=== PATIENT | female | born 1995 ===

== ENCOUNTER 2016-08-19 08:18 | Observation (INO) | payer MEDICAID ==
[2016-08-19 08:18] VITALS: BMI 23.2
[2016-08-19] MEDS ORDERED: Albuterol-Ipratrop 3 mg / 0.5 (3 ml) UD ONE (09:24)
--- NOTE | 2016-08-19 09:29 | ED PDOC ---
HPI: Asthma Time Seen by Provider: 08/19/16 09:08 Chief Complaint (Nursing): Chest Pain History Per: Patient History/Exam Limitations: no limitations Onset/Duration Of Symptoms: Days Current Symptoms Are (Timing): Still Present Associated Symptoms: Cough Additional Complaint(s): 20-year-old female, PMhx includes Asthma, Anemia, Bronchitis, Pneumothorax, and Sickle-Cell trait, presents to the emergency department with complaints of asthma exacerbation. Patient states she has been experiencing chest tightness nd shortness of breath that is consistent w/ asthma symptoms, for the past few days. She is using her Nebulizer treatment at home with transient relief. Patient notes she woke up this morning with a cough, that is associated with pain in upper back and chest, resulting in her coming to the ED for evaluation. Denies nausea/vomiting, fevers, chills, symptoms, diarrhea, or any other associated symptoms. No other complaints at this time. Last nebulizer Tx was at 06:[address] Tinsley Past Medical History Reviewed: Historical Data, Nursing Documentation, Vital Signs Vital Signs: Last Vital Signs Temp 98.2 F 08/19/16 08:26 Pulse 116 H 08/19/16 08:26 Resp 20 08/19/16 08:26 BP 124/71 08/19/16 08:26 Pulse Ox 93 L 08/19/16 08:26 - Medical History PMH: Anemia, Asthma, Bronchitis, Pneumonia Denies: Chronic Kidney Disease - Family History Family History: States: Unknown Family Hx - Home Medications Home Medications: Ambulatory Orders Medication Instructions Recorded Albuterol Sulfate [Proair Hfa] 2 puff INH Q8 07/24/14 Famotidine [Pepcid] 20 mg PO Q12 #14 tab 06/21/16 Ondansetron ODT [Zofran ODT] 4 mg PO Q6 PRN #16 odt 06/21/16 - Allergies Allergies/Adverse Reactions: Allergies Allergy/AdvReac Type Severity Reaction Status Date / Time shellfish derived Allergy ANGIOEDEMA Verified 08/19/16 08:25 Review of Systems ROS Statement: Except As Marked, All Systems Reviewed And Found Negative Constitutional: Negative for: Fever, Chills Cardiovascular: Positive for: Chest Pain. Negative for: Palpitations, Light Headedness Respiratory: Positive for: Cough, Shortness of Breath Gastrointestinal: Negative for: Vomiting Genitourinary Female: Negative for: Dysuria, Frequency, Vaginal Bleeding Musculoskeletal: Positive for: Back Pain. Negative for: Neck Pain Skin: Negative for: Rash Neurological: Negative for: Weakness, Numbness, Headache, Dizziness Physical Exam - Reviewed Nursing Documentation Reviewed: Yes Vital Signs Reviewed: Yes - Physical Exam Appears: Positive for: Non-toxic, No Acute Distress Head Exam: Positive for: ATRAUMATIC, NORMOCEPHALIC Skin: Positive for: Warm, Dry. Negative for: Rash Eye Exam: Positive for: Normal appearance Neck: Positive for: Painless ROM Cardiovascular/Chest: Positive for: Regular Rate, Rhythm. Negative for: Murmur Respiratory: Positive for: Normal Breath Sounds, Other (SPEAKING IN FULL SENTENCES) Gastrointestinal/Abdominal: Positive for: Soft. Negative for: Tenderness Back: Positive for: Normal Inspection. Negative for: L CVA Tenderness, R CVA Tenderness Extremity: Positive for: Normal ROM Neurologic/Psych: Positive for: Alert, Oriented - Laboratory Results Result Diagrams: 08/19/16 09:48 08/19/16 09:48 - ECG O2 Sat by Pulse Oximetry: 93 - Radiology X-Ray: Read By Radiologist X-Ray Interpretation: No Acute Disease - Progress Re-evaluation Time: 11:14 (peak flow 250 to 350) Condition: Re-examined, Improving,but remains with symptoms Medical Decision Making Medical Decision Making: Impression: 20y/o F comes in w/ cough and chest tightness Diff Dx (includes but not limited to) Asthma Exacerbation vs Viral Syndrome vs PTX vs Influenza Plan: * BMP * CBC * Chest X-Ray * Duoneb, IVF, SoluMedrol * Influenza AB * Reassess and Disposition Scribe Attestation: Documented by Kush Torres acting as a scribe for Julienne Birmingham MD. Provider Attestation: All medical record entries made by the Scribe were at my direction and personally dictated by me. I have reviewed the chart and agree that the record accurately reflects my personal performance of the history, physical exam, medical decision making, and the department course for this patient. I have also personally directed, reviewed, and agree with the discharge instructions and disposition. Though peak flow improved, patient is still coughing and not feeling better. Will admit to hospitalist for Dr. Tinsley Disposition - Clinical Impression Clinical Impression: Asthma exacerbation - Patient ED Disposition Is Patient to be Admitted: Yes Doctor Will See Patient In The: Office Counseled Patient/Family Regarding: Diagnosis - Disposition Disposition: Transfer of Care Disposition Time: 11:16 Condition: FAIR - Pt Status Changed To: Hospital Disposition Of: Observation - POA Present On Arrival: None
[2016-08-19] MEDS ORDERED: Sodium Chloride 0.9% 1,000 ML IV STA (09:32)
[2016-08-19] MEDS ORDERED: Albuterol-Ipratrop 3 mg / 0.5 (3 ml) UD INH SCH (09:45)
[2016-08-19 10:13] LABS: BASO % 0.7 % (0.0-2.0); EOS # 0.6 K/uL (0.0-0.7); LYMPH % 16.6 % (20.0-40.0); MEAN CELL VOLUME 91.8 fl (81.0-99.0); MEAN CORPUSCULAR HEMOGLOBIN 30.1 pg (27.0-31.0); MEAN CORPUSCULAR HGB CONC 32.8 g/dL (33.0-37.0); MEAN PLATELET VOLUME 9.6 fl (7.2-11.7); MONO # 0.3 K/uL (0.0-0.8); MONO % 5.9 % (0.0-10.0); NEUT # 3.9 K/uL (1.8-7.0); NEUT % 66.8 % (50.0-75.0); NRBC % 0.1 % (0.0-0.0); RED CELL DISTRIBUTION WIDTH 12.1 % (11.5-14.5); WHITE BLOOD COUNT 5.9 K/uL (4.8-10.8)
--- NOTE | 2016-08-19 10:19 | RAD ---
HISTORY: cough COMPARISON: 03/30/2016 TECHNIQUE: Chest PA and lateral FINDINGS: LUNGS: No focal alveolar infiltrate is appreciated. Mild nonspecific peribronchial thickening is appreciated which may suggest mild bronchitis or reactive airway disease. PLEURA: No significant pleural effusion identified. No pneumothorax apparent. CARDIOVASCULAR: Normal. OSSEOUS STRUCTURES: Minimal scoliosis is not excluded. No fracture seen. VISUALIZED UPPER ABDOMEN: Normal. OTHER FINDINGS: None. IMPRESSION: No evidence of focal alveolar infiltrate.
[2016-08-19] MEDS ORDERED: Albuterol-Ipratrop 3 mg / 0.5 (3 ml) UD INH STA ×2 (10:30→10:31)
[2016-08-19 10:40] LABS: BLOOD UREA NITROGEN 8 mg/dl (7-17); CALCIUM 9.3 mg/dL (8.4-10.2); CARBON DIOXIDE 23 mmol/L (22-30); CHLORIDE 108 mmol/L (98-107); GFR AFRICAN-AMERICAN > 60; GLUCOSE,RANDOM 95 mg/dL (65-105); POTASSIUM 3.7 MMOL/L (3.6-5.0); SODIUM 139 mmol/l (132-148)
--- NOTE | 2016-08-19 12:08 | CP.PCM.HP ---
History of Present Illness - History of Present Illness History of Present Illness: 20 yo female with history of Asthma since childhood came in because of SOB since 2 days ago. Patient also has cough productive with yellow sputum but denied fever or chills. Also has chest and back pain from excessive coughing. Took ProAir spray but did not improve. Present on Admission - Present on Admission Any Indicators Present on Admission: No History of DVT/PE: No History of Uncontrolled Diabetes: No Urinary Catheter: No Decubitus Ulcer Present: No Review of Systems - Review of Systems All systems: reviewed and no additional remarkable complaints except (aside from those mentioned above, 12 point system review were negative by me) Past Patient History - Infectious Disease Hx of Infectious Diseases: None - Tetanus Immunizations Tetanus Immunization: Unknown - Past Social History Smoking Status: Never Smoked Chewing Tobacco Use: No Cigar Use: No Alcohol: None Drugs: Denies Home Situation {Lives}: With Family - CARDIAC Hx Cardiac Disorders: No - PULMONARY Hx Asthma: Yes Hx Bronchitis: Yes Hx Pneumonia: Yes (x 3) - NEUROLOGICAL Hx Neurological Disorder: No - HEENT Hx HEENT Problems: No - RENAL Hx Chronic Kidney Disease: No - ENDOCRINE/METABOLIC Hx Endocrine Disorders: No - HEMATOLOGICAL/ONCOLOGICAL Hx Anemia: Yes - INTEGUMENTARY Hx Dermatological Problems: No - MUSCULOSKELETAL/RHEUMATOLOGICAL Hx Musculoskeletal Disorders: Yes Hx Back Pain: Yes (Denies) - GASTROINTESTINAL Hx Gastrointestinal Disorders: No - GENITOURINARY/GYNECOLOGICAL Hx Genitourinary Disorders: No - PSYCHIATRIC Hx Psychophysiologic Disorder: No Hx Substance Use: No - SURGICAL HISTORY Hx Surgeries: No Other/Comment: left leg injury- cut from metal with surgical repair - ANESTHESIA Hx Anesthesia: Yes Hx Anesthesia Reactions: No Meds Allergies/Adverse Reactions: Allergies Allergy/AdvReac Type Severity Reaction Status Date / Time shellfish derived Allergy ANGIOEDEMA Verified 08/19/16 08:25 Physical Exam - Constitutional Appears: No Acute Distress - Head Exam Head Exam: ATRAUMATIC - Eye Exam Eye Exam: absent: Scleral icterus - ENT Exam ENT Exam: Mucous Membranes Moist - Neck Exam Neck exam: Negative for: Meningismus - Respiratory Exam Respiratory Exam: Decreased Breath Sounds, Prolonged Expiratory Phase. absent: Wheezes - Cardiovascular Exam Cardiovascular Exam: REGULAR RHYTHM, +S1, +S2 - GI/Abdominal Exam GI & Abdominal Exam: Soft. absent: Tenderness - Rectal Exam Rectal Exam: Deferred - Extremities Exam Extremities exam: Negative for: pedal edema - Neurological Exam Neurological exam: Alert, Oriented x3 - Psychiatric Exam Psychiatric exam: Normal Affect - Skin Skin Exam: Dry, Intact Results - Vital Signs Recent Vital Signs: Last Vital Signs Temp 98.2 F 08/19/16 08:26 Pulse 116 H 08/19/16 08:26 Resp 20 08/19/16 08:26 BP 124/71 08/19/16 08:26 Pulse Ox 93 L 08/19/16 11:16 - Labs Result Diagrams: 08/19/16 09:48 08/19/16 09:48 Assessment & Plan (1) Asthma exacerbation Status: Acute Comment: place on observation in med/surg. Albuterol via nebulizer q 4hrs prn for wheezing/SOB. Duoneb via nebulizer q 6hrs. SoluMedrol 40mg IV q 6hrs. MgSO4 2gm IV once. Zithromax 500mg IV daily
[2016-08-19] MEDS ORDERED: Albuterol 0.083% Inhal Sol (2.5 mg/3 mL) UD INH PRN (12:27)
[2016-08-19] MEDS: Sodium Chloride 0.9% 1,000 ML IV SCH ×2 (13:00→22:30)
[2016-08-19] MEDS: Azithromycin 500 MG in Sodium Chloride 0.9% 250 ML IVPB SCH (14:48)
[2016-08-19] MEDS: Albuterol-Ipratrop 3 mg / 0.5 (3 ml) UD INH SCH ×2 (15:49→20:18)
[2016-08-19] MEDS: methylPREDNISolone 40 MG in Sodium Chloride 0.9% 50 ML IV SCH ×2 (17:26→21:15)
[2016-08-19] MEDS: Fluticasone-Salmeterol 250-50mcg Diskus IH SCH (21:16)
[2016-08-20] MEDS: methylPREDNISolone 40 MG in Sodium Chloride 0.9% 50 ML IV SCH ×2 (03:44→10:26)
[2016-08-20] MEDS: Sodium Chloride 0.9% 1,000 ML IV SCH (03:45)
[2016-08-20] MEDS: Albuterol-Ipratrop 3 mg / 0.5 (3 ml) UD INH SCH (07:55)
[2016-08-20 08:00] LABS: EOS % 0.1 % (0.0-4.0); HEMATOCRIT 35.9 % (34.0-47.0); LYMPH # 0.3 K/uL (1.0-4.3); LYMPH % 3.7 % (20.0-40.0); MEAN CELL VOLUME 92.3 fl (81.0-99.0); MEAN CORPUSCULAR HEMOGLOBIN 30.6 pg (27.0-31.0); MEAN CORPUSCULAR HGB CONC 33.1 g/dL (33.0-37.0); MONO # 0.2 K/uL (0.0-0.8); MONO % 1.9 % (0.0-10.0); NEUT # 8.8 K/uL (1.8-7.0); NEUT % 94.3 % (50.0-75.0); NRBC % 0.1 % (0.0-0.0); PLATELET COUNT 187 K/uL (130-400); RED CELL DISTRIBUTION WIDTH 12.2 % (11.5-14.5); WHITE BLOOD COUNT 9.3 K/uL (4.8-10.8)
[2016-08-20 08:06] VITALS: BP 110/71; PULSE 85; RESP 20; TEMP 98.6; O2SAT 97
[2016-08-20 08:25] LABS: BLOOD UREA NITROGEN 8 mg/dl (7-17); CALCIUM 9.3 mg/dL (8.4-10.2); CARBON DIOXIDE 21 mmol/L (22-30); CHLORIDE 109 mmol/L (98-107); GFR AFRICAN-AMERICAN > 60; GLUCOSE,RANDOM 106 mg/dL (65-105); POTASSIUM 4.4 MMOL/L (3.6-5.0); SODIUM 137 mmol/l (132-148)
[2016-08-20] MEDS: Azithromycin 500 MG in Sodium Chloride 0.9% 250 ML IVPB SCH (08:34)
[2016-08-20] MEDS: Fluticasone-Salmeterol 250-50mcg Diskus IH SCH (08:35)
[2016-08-20] MEDS ORDERED: Enoxaparin 40 mg Syringe SC SCH (09:00)
--- NOTE | 2016-08-20 10:35 | CP.PCM.DIS ---
Provider - Provider Date of Admission: 08/19/16 11:16 Attending physician: Ritesh Austin MD Primary care physician: Vicente Tinsley MD Time Spent in preparation of Discharge (in minutes): 35 Diagnosis - Discharge Diagnosis (1) Asthma exacerbation Status: Acute Comment: patient felt better and breathing easier. discharge in stable condition. continue Zithromax, Medrolpak, Advair and Duoneb as needed Hospital Course - Lab Results Lab Results: Most Recent Lab Values WBC 9.3 K/uL (4.8-10.8) D 08/20/16 05:30 RBC 3.89 Mil/uL (3.80-5.20) 08/20/16 05:30 Hgb 11.9 g/dL (12.0-16.0) L 08/20/16 05:30 Hct 35.9 % (34.0-47.0) 08/20/16 05:30 MCV 92.3 fl (81.0-99.0) 08/20/16 05:30 MCH 30.6 pg (27.0-31.0) 08/20/16 05:30 MCHC 33.1 g/dL (33.0-37.0) 08/20/16 05:30 RDW 12.2 % (11.5-14.5) 08/20/16 05:30 Plt Count 187 K/uL (130-400) 08/20/16 05:30 MPV 10.0 fl (7.2-11.7) 08/20/16 05:30 Neut % (Auto) 94.3 % (50.0-75.0) H 08/20/16 05:30 Lymph % (Auto) 3.7 % (20.0-40.0) L 08/20/16 05:30 [place] % (Auto) 1.9 % (0.0-10.0) 08/20/16 05:30 Eos % (Auto) 0.1 % (0.0-4.0) 08/20/16 05:30 Baso % (Auto) 0.0 % (0.0-2.0) 08/20/16 05:30 Neut # 8.8 K/uL (1.8-7.0) H 08/20/16 05:30 Lymph # 0.3 K/uL (1.0-4.3) L 08/20/16 05:30 [place] # 0.2 K/uL (0.0-0.8) 08/20/16 05:30 Eos # 0.0 K/uL (0.0-0.7) 08/20/16 05:30 Baso # 0.0 K/uL (0.0-0.2) 08/20/16 05:30 Sodium 137 mmol/l (132-148) 08/20/16 05:30 Potassium 4.4 MMOL/L (3.6-5.0) 08/20/16 05:30 Chloride 109 mmol/L (98-107) H 08/20/16 05:30 Carbon Dioxide 21 mmol/L (22-30) L 08/20/16 05:30 Anion Gap 11 (10-20) 08/20/16 05:30 BUN 8 mg/dl (7-17) 08/20/16 05:30 Creatinine 0.5 mg/dL (0.7-1.2) L 08/20/16 05:30 Est GFR ( Amer) > 60 08/20/16 05:30 Est GFR (Non-Af Amer) > 60 08/20/16 05:30 Random Glucose 106 mg/dL (65-105) H 08/20/16 05:30 Calcium 9.3 mg/dL (8.4-10.2) 08/20/16 05:30 Influenza Typ A,B (EIA) Negative for flu a/b (NEGATIVE) 08/19/16 09:48 - Hospital Course Hospital Course: 20 yo female with history of Asthma since childhood came in because of SOB of 2 days duration. She was put on observation and started on SoluMedrol, IV antibiotics and bronchodilators. Patient improved and discharged in stable condition the next day. Discharge Exam - Head Exam Head Exam: ATRAUMATIC - Eye Exam Eye Exam: absent: Scleral icterus - ENT Exam ENT Exam: Mucous Membranes Moist - Respiratory Exam Respiratory Exam: absent: Rhonchi, Wheezes, Respiratory Distress, UNREMARKABLE - Cardiovascular Exam Cardiovascular Exam: REGULAR RHYTHM, +S1, +S2 - GI/Abdominal Exam GI & Abdominal Exam: Soft. absent: Tenderness - Rectal Exam Rectal Exam: Deferred - Neurological Exam Neurological exam: Alert, Oriented x3 - Psychiatric Exam Psychiatric exam: Normal Affect - Skin Skin Exam: Dry, Erythema Discharge Plan - Discharge Medications Prescriptions: Fluticasone/Salmeterol 250/50 [Advair Diskus 250/50] 1 puff IH Q12 #1 puff Albuterol/Ipratropium [Duoneb 3 mg/0.5 mg (3 ml) UD] 3 ml INH RQID #20 neb Methylprednisolone [Medrol] 4 mg PO ASDIR #21 tab.ds.pk Azithromycin [Zithromax] 500 mg PO DAILY #5 tablet - Follow Up Plan Condition: FAIR Disposition: HOME/ ROUTINE Referrals: Vicente Tinsley MD [Primary Care Provider] -
[2016-08-20 13:38] LABS: TOTAL CELLS COUNTED 100
[2016-08-20 13:39] LABS: NEUTROPHIL 94 % (42-75)
== END 2016-08-20 12:03 | disposition home or self-care (01) ==
LOC: H.ER 08:18 → H.ERHOLD 11:16 → H.MEDSURG1 12:27
DX: J45.901 Unspecified asthma with (acute) exacerbation (principal); Z87.01 Personal history of pneumonia (recurrent); D57.3 Sickle-cell trait

== ENCOUNTER 2016-12-06 09:52 | Emergency (ER) | payer MEDICAID ==
[2016-12-06 09:52] VITALS: BMI 23.2
[2016-12-06 09:56] VITALS: RESP 18; O2SAT 97
[2016-12-06] MEDS ORDERED: Albuterol-Ipratrop 3 mg / 0.5 (3 ml) UD INH STA (10:29)
--- NOTE | 2016-12-06 10:29 | ED PDOC ---
HPI: CCC, URI, Sore Throat Chief Complaint (Provider): URI History Per: Patient Time Seen by Provider: 12/06/16 09:58 Chief Complaint (Nursing): Cough, Cold, Congestion Additional Complaint(s): 21 yo female, c/o cough/wheezing ,has hx of asthma. No fever or chills. (Christy Victor) Past Medical History Reviewed: Nursing Documentation, Vital Signs - Medical History PMH: Anemia, Asthma, Bronchitis, Pneumonia (x 3) Denies: Chronic Kidney Disease - Surgical History Surgical History: No Surg Hx - Family History Family History: States: Unknown Family Hx - Living Arrangements Living Arrangements: With Family - Social History Current smoker - smoking cessation education provided: No Alcohol: None Drugs: Denies Vital Signs: Last Vital Signs Temp 97.9 F 12/06/16 12:22 Pulse 78 12/06/16 12:22 Resp 18 12/06/16 12:22 BP 122/68 12/06/16 12:22 Pulse Ox 97 12/06/16 12:22 - Home Medications Home Medications: Ambulatory Orders Medication Instructions Recorded Albuterol/Ipratropium [Duoneb 3 3 ml INH RQID #20 neb 08/20/16 mg/0.5 mg (3 ml) UD] Azithromycin [Zithromax] 500 mg PO DAILY #5 tablet 08/20/16 Fluticasone/Salmeterol 250/50 1 puff IH Q12 #1 puff 08/20/16 [Advair Diskus 250/50] Methylprednisolone [Medrol] 4 mg PO ASDIR #21 tab.ds.pk 08/20/16 Methylprednisolone [Medrol Dose 4 mg PO DAILY #21 mg 12/06/16 Pack (21 tabs)] Promethazine HCl/Codeine 5 ml PO HS #80 ml 12/06/16 [Prometh-Codein 6.25-10 mg/5 ml] - Allergies Allergies/Adverse Reactions: Allergies Allergy/AdvReac Type Severity Reaction Status Date / Time shellfish derived Allergy ANGIOEDEMA Verified 12/06/16 09:57 Review of Systems ROS Statement: Except As Marked, All Systems Reviewed And Found Negative Constitutional: Positive for: Fever Respiratory: Positive for: Cough Physical Exam - Reviewed Nursing Documentation Reviewed: Yes Vital Signs Reviewed: Yes - Physical Exam Appears: Positive for: Well, Non-toxic, No Acute Distress Head Exam: Positive for: ATRAUMATIC, NORMAL INSPECTION, NORMOCEPHALIC Skin: Positive for: Normal Color, Warm, DRY Eye Exam: Positive for: EOMI, Normal appearance, PERRL ENT: Positive for: Normal ENT Inspection Neck: Positive for: Normal, Painless ROM Cardiovascular/Chest: Positive for: Regular Rate, Rhythm Respiratory: Positive for: CNT, Normal Breath Sounds Gastrointestinal/Abdominal: Positive for: Normal Exam, Bowel Sounds, Soft Back: Positive for: Normal Inspection Extremity: Positive for: Normal ROM Neurologic/Psych: Positive for: Alert, Oriented - ECG O2 Sat by Pulse Oximetry: 97 Medical Decision Making Medical Decision Making: CXR: NAD, as read by STEVAN Garcia neb initiated and Solumedrol given as well Stable for discharge at this time, Pt reports doing well on re-eval Lungs CTA bilaterally (Christy Victor) Disposition - Patient ED Disposition Is Patient to be Admitted: No - Disposition Disposition: Routine/Home Disposition Time: 11:00 - Clinical Impression Clinical Impression: Upper respiratory infection, Bronchospasm - Disposition Condition: STABLE Prescriptions: Methylprednisolone [Medrol Dose Pack (21 tabs)] 4 mg PO DAILY #21 mg Promethazine HCl/Codeine [Prometh-Codein 6.25-10 mg/5 ml] 5 ml PO HS #80 ml Instructions: Upper Respiratory Infection (ED), Bronchospasm (ED)
[2016-12-06] MEDS ORDERED: Albuterol-Ipratrop 3 mg / 0.5 (3 ml) UD ONE (10:41)
--- NOTE | 2016-12-06 11:44 | RAD ---
HISTORY: cough and SOB COMPARISON: 08/19/2016. TECHNIQUE: Chest PA and lateral FINDINGS: LUNGS: The lungs are well inflated and clear. PLEURA: No significant pleural effusion identified. No pneumothorax apparent. CARDIOVASCULAR: Normal. OSSEOUS STRUCTURES: No significant abnormalities. VISUALIZED UPPER ABDOMEN: Normal. OTHER FINDINGS: None. IMPRESSION: No active pulmonary disease.
[2016-12-06 12:23] VITALS: BP 122/68; PULSE 78; TEMP 97.9
== END 2016-12-06 12:23 | disposition home or self-care (01) ==
LOC: H.ER 09:52
DX: J06.9 Acute upper respiratory infection, unspecified (principal); J98.01 Acute bronchospasm

== ENCOUNTER 2017-01-31 09:11 | Emergency (ER) | payer MEDICAID ==
[2017-01-31 09:17] VITALS: BMI 19.8
[2017-01-31 09:18] VITALS: BP 106/70; PULSE 109; RESP 20; TEMP 97.8; O2SAT 98
--- NOTE | 2017-01-31 09:43 | ED PDOC ---
HPI: Asthma Time Seen by Provider: 01/31/17 09:19 History Per: Patient (feeling increased need for inhaler/nebulizer. She ran out of her meds and her assigned PCP on her insurance cannot see her for refills. Her last treatment was 3.5 hours prior to visit here. She has never been intubated in the past. She notes symptoms worse at night when she is home.) History/Exam Limitations: no limitations Onset/Duration Of Symptoms: Waxing/Waning Current Symptoms Are (Timing): Gone Now Associated Symptoms: Dyspnea, Cough Severity: Mild Past Medical History Reviewed: Historical Data, Nursing Documentation, Vital Signs Vital Signs: Last Vital Signs Temp 97.8 F 01/31/17 09:17 Pulse 109 H 01/31/17 09:17 Resp 20 01/31/17 09:17 BP 106/70 01/31/17 09:17 Pulse Ox 98 01/31/17 09:17 - Medical History PMH: Anemia, Asthma, Bronchitis, Pneumonia (x 3) Denies: Chronic Kidney Disease - Surgical History Surgical History: No Surg Hx - Family History Family History: States: Unknown Family Hx - Living Arrangements Living Arrangements: Alone - Social History Current smoker - smoking cessation education provided: No Ex-Smoker (has not smoked in the last 12 months): Yes Alcohol: Occasional Drugs: Denies - Home Medications Home Medications: Ambulatory Orders Medication Instructions Recorded Albuterol/Ipratropium [Duoneb 3 3 ml INH RQID #20 neb 08/20/16 mg/0.5 mg (3 ml) UD] Azithromycin [Zithromax] 500 mg PO DAILY #5 tablet 08/20/16 Fluticasone/Salmeterol 250/50 1 puff IH Q12 #1 puff 08/20/16 [Advair Diskus 250/50] Methylprednisolone [Medrol] 4 mg PO ASDIR #21 tab.ds.pk 08/20/16 Methylprednisolone [Medrol Dose 4 mg PO DAILY #21 mg 12/06/16 Pack (21 tabs)] Promethazine HCl/Codeine 5 ml PO HS #80 ml 12/06/16 [Prometh-Codein 6.25-10 mg/5 ml] Albuterol 0.083% [Albuterol 0.083% 2.5 mg IH Q4 PRN #50 unit 01/31/17 Inhal Cathy (2.5 mg/3 ml) UD] Albuterol Sulfate [Proair Hfa] 2 puff IH Q4H PRN #1 unit 01/31/17 - Allergies Allergies/Adverse Reactions: Allergies Allergy/AdvReac Type Severity Reaction Status Date / Time shellfish derived Allergy ANGIOEDEMA Verified 12/06/16 09:57 Review of Systems ROS Statement: Except As Marked, All Systems Reviewed And Found Negative Constitutional: Negative for: Fever Cardiovascular: Negative for: Chest Pain Respiratory: Positive for: Shortness of Breath. Negative for: Cough Gastrointestinal: Negative for: Nausea, Vomiting Physical Exam - Reviewed Nursing Documentation Reviewed: Yes Vital Signs Reviewed: Yes - Physical Exam Appears: Positive for: Well, Non-toxic, No Acute Distress Head Exam: Positive for: ATRAUMATIC, NORMAL INSPECTION, NORMOCEPHALIC Skin: Positive for: Normal Color, Warm, DRY Eye Exam: Positive for: EOMI, Normal appearance, PERRL ENT: Positive for: Normal ENT Inspection Neck: Positive for: Normal, Painless ROM Cardiovascular/Chest: Positive for: Regular Rate, Rhythm Respiratory: Positive for: Normal Breath Sounds, Respiratory Distress. Negative for: Decreased Breath Sounds, Accessory Muscle Use, Wheezing Gastrointestinal/Abdominal: Positive for: Normal Exam, Bowel Sounds, Soft Back: Positive for: Normal Inspection Extremity: Positive for: Normal ROM Neurologic/Psych: Positive for: Alert, Oriented - ECG O2 Sat by Pulse Oximetry: 98 Disposition - Clinical Impression Clinical Impression: Asthma - Disposition Referrals: Marleny Summers [place] [Outside] Disposition Time: 09:25 Condition: STABLE Prescriptions: Albuterol 0.083% [Albuterol 0.083% Inhal Cathy (2.5 mg/3 ml) UD] 2.5 mg IH Q4 PRN #50 unit PRN Reason: Wheezing Albuterol Sulfate [Proair Hfa] 2 puff IH Q4H PRN #1 unit PRN Reason: Wheezing Instructions: Asthma (ED)
== END 2017-01-31 10:00 | disposition home or self-care (01) ==
LOC: H.ER 09:11
DX: J45.909 Unspecified asthma, uncomplicated (principal)

== ENCOUNTER 2017-05-19 19:25 | Emergency (ER) | payer MEDICAID ==
[2017-05-19 19:25] VITALS: BMI 19.8
[2017-05-19 19:32] VITALS: TEMP 98.1
[2017-05-19 19:48] VITALS: RESP 19; O2SAT 98
[2017-05-19] MEDS ORDERED: Albuterol-Ipratrop 3 mg / 0.5 (3 ml) UD INH STA (19:52)
--- NOTE | 2017-05-19 19:57 | ED PDOC ---
HPI: SOB/CHF/COPD Chief Complaint (Provider): cough and SOB History Per: Patient History/Exam Limitations: no limitations Onset/Duration Of Symptoms: Days Current Symptoms Are (Timing): Still Present Initiating Event: Other (dry cough) Quality: Tightness (chest tightness ) Exacerbating Factor(s): Coughing Current Respiratory Medications: Albuterol Severity: Moderate Associated Symptoms: Other (chest tightness and post-tussive emesis ). denies: Fever, Chills <Mahi Stiles - Last Filed: 05/19/17 22:34> <Christy Ruff - Last Filed: 05/20/17 17:38> Time Seen by Provider: 05/19/17 19:38 Chief Complaint (Nursing): Shortness Of Breath Additional Complaint(s): CC: SOB and cough HPI: 21 YO Female with sig PMH of Asthma presents to ED for SOB and cough. Pt states that she starting coughing on Sunday, and it worsened over the past few days. Additionally, pt endorses chest tightness, dyspnea, post-tussive emesis x 2 (food and mucus, no blood noted-last ep this AM). Pt has used her albuterol multiple times in the past two days without much relief and also used nebulizer at night. Denies fever, chills, n/c/d. PMH: Asthma, hx of pneumonia SurgHx: denies FH: HTN and DM in both side of family SH: hx of smoking 5 yrs ago, denies ETOH and illicit drug use Meds: albuterol Allergies: Shellfish (Mahi Stiles) Supervising Attending Note <Mahi Stiles - Last Filed: 05/19/17 22:34> - Supervising Attending Note The Documented history was done by the: Physician Machinery Mechanic, Attending Physician The documented physical exam was done by the: Physician Machinery Mechanic, Attending Physician - Attestation: I have personally seen and examined this patient.: Yes I have fully participated in the care of the patient.: Yes I have reviewed all pertinent clinical information, including history, physical exam and plan: Yes <Christy Ruff - Last Filed: 05/20/17 17:38> - Notes: Notes:: Asthma exacerbation, ran out of meds. Improved with ER treatment. (Christy Ruff) Past Medical History - Medical History PMH: Anemia, Asthma, Bronchitis, Pneumonia (x 3) Denies: Chronic Kidney Disease - Surgical History Surgical History: No Surg Hx - Family History Family History: States: Diabetes, Hypertension - Social History Current smoker - smoking cessation education provided: No Ex-Smoker (has not smoked in the last 12 months): Yes Alcohol: None Drugs: Denies <Mahi Stiles - Last Filed: 05/19/17 22:34> <Christy Ruff - Last Filed: 05/20/17 17:38> Vital Signs: Last Vital Signs Temp 98.1 F 05/19/17 19:29 Pulse 89 05/19/17 22:33 Resp 19 05/19/17 22:33 BP 102/73 05/19/17 22:33 Pulse Ox 98 05/19/17 22:35 - Home Medications Home Medications: Ambulatory Orders Medication Instructions Recorded Albuterol/Ipratropium [Duoneb 3 3 ml INH RQID #20 neb 08/20/16 mg/0.5 mg (3 ml) UD] Azithromycin [Zithromax] 500 mg PO DAILY #5 tablet 08/20/16 Fluticasone/Salmeterol 250/50 1 puff IH Q12 #1 puff 08/20/16 [Advair Diskus 250/50] Methylprednisolone [Medrol] 4 mg PO ASDIR #21 tab.ds.pk 08/20/16 Methylprednisolone [Medrol Dose 4 mg PO DAILY #21 mg 12/06/16 Pack (21 tabs)] Promethazine HCl/Codeine 5 ml PO HS #80 ml 12/06/16 [Prometh-Codein 6.25-10 mg/5 ml] Albuterol 0.083% [Albuterol 0.083% 2.5 mg IH Q4 PRN #50 unit 01/31/17 Inhal Cathy (2.5 mg/3 ml) UD] Albuterol Sulfate [Proair Hfa] 2 puff IH Q4H PRN #1 unit 01/31/17 Albuterol 0.083% [Albuterol 3 ml IH Q4 PRN #50 neb 05/19/17 Sulfate 3 Ml] Albuterol HFA [Ventolin HFA 90 2 puff IH Q4H PRN #1 inh 05/19/17 mcg/actuation (8 g)] Prednisone 50 mg PO DAILY #4 tablet 05/19/17 - Allergies Allergies/Adverse Reactions: Allergies Allergy/AdvReac Type Severity Reaction Status Date / Time shellfish derived Allergy ANGIOEDEMA Verified 12/06/16 09:57 Review of Systems Constitutional: Negative for: Fever, Chills Eyes: Negative for: Pain ENT: Negative for: Nose Discharge Cardiovascular: Positive for: Other (chest tightness ). Negative for: Palpitations Respiratory: Positive for: Cough, Shortness of Breath Gastrointestinal: Positive for: Vomiting (post tussive emesis x 2 ) Genitourinary Female: Negative for: Dysuria Neurological: Negative for: Weakness, Confusion Psych: Negative for: Anxiety <Sa Linseyima - Last Filed: 05/19/17 22:34> Physical Exam - Physical Exam Appears: Positive for: Non-toxic, Uncomfortable Head Exam: Positive for: ATRAUMATIC, NORMAL INSPECTION Skin: Positive for: Normal Color, Warm, Dry. Negative for: Diaphoresis Eye Exam: Positive for: Normal appearance ENT: Negative for: Tonsillar Exudate, Tonsillar Swelling Neck: Positive for: Normal, Painless ROM Cardiovascular/Chest: Positive for: Chest Non Tender, Tachycardia Respiratory: Positive for: Wheezing (expiratory and inspiratory upper and lower lobes b/l ). Negative for: Crackles Gastrointestinal/Abdominal: Positive for: Normal Exam, Bowel Sounds, Soft, Tenderness Extremity: Positive for: Normal ROM. Negative for: Pedal Edema Neurologic/Psych: Positive for: Alert, Oriented <Sa Linseyima - Last Filed: 05/19/17 22:34> - ECG ECG: Positive for: Interpreted By Me ECG Rhythm: Positive for: Sinus Tachycardia O2 Sat by Pulse Oximetry: 98 Pulse Ox Interpretation: Normal <LinseyMahi - Last Filed: 05/19/17 22:34> <Christy Ruff - Last Filed: 05/20/17 17:38> - ECG Interpretation Of ECG: Sinus tachycardia with a rate of 109 (LinseyMahi) - Progress ED Course And Treament: 21 YO Female with PMH of Asthma is seen in ED asthma Exacerbating. Pt given solumedrol and treatment with duonab. Pretreatment Peak flow 100, post treatment peak flow 350 Chest Xray appreciated, interpreted by me, no acute pulmonary disease noted Pt is seen and reevaluated. Wheezing has resolved at this time. Pt endorses that her chest tightness has improved. She feels well enough to go home at this time. PMD is Dr. Tinsley and will follow up with him after d/c. Will d/c pt home with albuterol inh, HFA and PO prednisone 50mg x 4 days (Mahi Stiles) Disposition - Patient ED Disposition Is Patient to be Admitted: No - Disposition Disposition: Routine/Home <Mahi Stiles - Last Filed: 05/19/17 22:34> - Disposition Disposition: Routine/Home Disposition Time: 22:00 <Christy Ruff - Last Filed: 05/20/17 17:38> - Clinical Impression Clinical Impression: Asthma exacerbation - Disposition Referrals: Vicente Tinsley MD [Staff Provider] - Condition: IMPROVED Additional Instructions: Please follow up with PMD Come back to ED if shortness of breath persists or worsens, with fever over 100.4 with Tylenol Prescriptions: Albuterol 0.083% [Albuterol Sulfate 3 Ml] 3 ml IH Q4 PRN #50 neb PRN Reason: asthma Albuterol HFA [Ventolin HFA 90 mcg/actuation (8 g)] 2 puff IH Q4H PRN #1 inh PRN Reason: ASTHMA Prednisone 50 mg PO DAILY #4 tablet
[2017-05-19] MEDS ORDERED: Albuterol-Ipratrop 3 mg / 0.5 (3 ml) UD ONE ×2 (20:32→20:34)
[2017-05-19 22:34] VITALS: BP 102/73; PULSE 89
--- NOTE | 2017-05-20 08:38 | RAD ---
HISTORY: sob COMPARISON: Chest radiographs 12/06/2016. TECHNIQUE: Chest PA and lateral FINDINGS: LUNGS: No active pulmonary disease. PLEURA: No significant pleural effusion identified. No pneumothorax apparent. CARDIOVASCULAR: Normal. OSSEOUS STRUCTURES: No significant abnormalities. VISUALIZED UPPER ABDOMEN: Normal. OTHER FINDINGS: None. IMPRESSION: No interval acute cardiopulmonary disease appreciated.
--- NOTE | 2017-05-20 17:25 | CARD ---
APPROVED REPORT EKG Measurement Heart [id number] <Conclusion> Sinus tachycardia Otherwise normal ECG
== END 2017-05-19 22:37 | disposition home or self-care (01) ==
LOC: H.ER 19:25
DX: J45.901 Unspecified asthma with (acute) exacerbation (principal); Z87.891 Personal history of nicotine dependence
CPT/HCPCS: 71020; 81025; 93005; 94640; 96372; 99283; J2930

== ENCOUNTER 2017-07-31 06:37 | Emergency (ER) | payer SELFPAY ==
[2017-07-31 06:38] VITALS: BMI 19.8
[2017-07-31 06:54] VITALS: RESP 18
[2017-07-31] MEDS ORDERED: Albuterol 0.083% Inhal Sol (2.5 mg/3 mL) UD INH ONE (07:51)
[2017-07-31 07:54] VITALS: O2SAT 98
[2017-07-31] MEDS ORDERED: Albuterol 0.083% Inhal Sol (2.5 mg/3 mL) UD ONE (08:02)
--- NOTE | 2017-07-31 08:09 | ED PDOC ---
HPI: SOB/CHF/COPD Time Seen by Provider: 07/31/17 07:10 Chief Complaint (Nursing): Shortness Of Breath Chief Complaint (Provider): Shortness Of Breath History Per: Patient History/Exam Limitations: no limitations Onset/Duration Of Symptoms: Hrs (x3) Current Symptoms Are (Timing): Still Present Additional Complaint(s): 21 year old female with a past medical history of asthma, who presents to the ED due to shortness of breath x2 hours. Patient reports she ran out of inhaler. States she woke up at 5am when she suffered what felt like an asthma attack with shortness of breath. Says she isn't sure what triggered her attack. Confirms occasional dry cough. Denies fever, vomiting, and chest pain. PMD: Vicente Tinsley Past Medical History Reviewed: Historical Data, Nursing Documentation, Vital Signs Vital Signs: Last Vital Signs Temp 97 F L 07/31/17 10:01 Pulse 88 07/31/17 10:01 Resp 18 07/31/17 10:01 BP 110/78 07/31/17 10:01 Pulse Ox 98 07/31/17 10:06 - Medical History PMH: Anemia, Asthma, Bronchitis, Pneumonia (x 3) Denies: Chronic Kidney Disease - Surgical History Surgical History: No Surg Hx - Family History Family History: States: Unknown Family Hx, Diabetes, Hypertension - Social History Current smoker - smoking cessation education provided: No Alcohol: None Drugs: Denies - Home Medications Home Medications: Ambulatory Orders Medication Instructions Recorded Albuterol/Ipratropium [Duoneb 3 3 ml INH RQID #20 neb 08/20/16 mg/0.5 mg (3 ml) UD] Azithromycin [Zithromax] 500 mg PO DAILY #5 tablet 08/20/16 Fluticasone/Salmeterol 250/50 1 puff IH Q12 #1 puff 08/20/16 [Advair Diskus 250/50] Methylprednisolone [Medrol] 4 mg PO ASDIR #21 tab.ds.pk 08/20/16 Methylprednisolone [Medrol Dose 4 mg PO DAILY #21 mg 12/06/16 Pack (21 tabs)] Promethazine HCl/Codeine 5 ml PO HS #80 ml 12/06/16 [Prometh-Codein 6.25-10 mg/5 ml] Albuterol 0.083% [Albuterol 0.083% 2.5 mg IH Q4 PRN #50 unit 01/31/17 Inhal Cathy (2.5 mg/3 ml) UD] Albuterol Sulfate [Proair Hfa] 2 puff IH Q4H PRN #1 unit 01/31/17 Albuterol 0.083% [Albuterol 3 ml IH Q4 PRN #50 neb 05/19/17 Sulfate 3 Ml] Albuterol HFA [Ventolin HFA 90 2 puff IH Q4H PRN #1 inh 05/19/17 mcg/actuation (8 g)] Prednisone 50 mg PO DAILY #4 tablet 05/19/17 Albuterol HFA [Ventolin HFA 90 1 - 2 puff IH Q4H PRN #1 bottle 07/31/17 mcg/actuation (8 g)] - Allergies Allergies/Adverse Reactions: Allergies Allergy/AdvReac Type Severity Reaction Status Date / Time shellfish derived Allergy ANGIOEDEMA Verified 12/06/16 09:57 Review of Systems ROS Statement: Except As Marked, All Systems Reviewed And Found Negative Constitutional: Negative for: Fever Cardiovascular: Negative for: Chest Pain Respiratory: Positive for: Cough, Shortness of Breath Gastrointestinal: Negative for: Vomiting Physical Exam - Reviewed Nursing Documentation Reviewed: Yes Vital Signs Reviewed: Yes - Physical Exam Appears: Positive for: Non-toxic, No Acute Distress Head Exam: Positive for: ATRAUMATIC, NORMAL INSPECTION, NORMOCEPHALIC Skin: Positive for: Normal Color, Warm, Dry. Negative for: Rash Eye Exam: Positive for: EOMI, Normal appearance, PERRL Neck: Positive for: Normal, Painless ROM, Supple Cardiovascular/Chest: Positive for: Regular Rate, Rhythm. Negative for: Murmur Respiratory: Positive for: Normal Breath Sounds. Negative for: Wheezing, Respiratory Distress Gastrointestinal/Abdominal: Positive for: Normal Exam, Bowel Sounds, Soft. Negative for: Tenderness Back: Positive for: Normal Inspection. Negative for: L CVA Tenderness, R CVA Tenderness, Vertebral Tenderness Extremity: Positive for: Normal ROM. Negative for: Pedal Edema, Deformity Neurologic/Psych: Positive for: Alert, Oriented (x3). Negative for: Motor/ Sensory Deficits - ECG O2 Sat by Pulse Oximetry: 98 (RA) Pulse Ox Interpretation: Normal Medical Decision Making Medical Decision Making: Time: 07:51 Initial Impression: Asthma exacerbation Initial Plan: --Albuterol 2.5 mg INH --Reevaluation Time: 09:54 pt feels improved and vitals stable Upon provider evaluation patient is medically stable, and requires no further treatment in the ED at this time. Patient will be discharged with Rx for Albuterol. Counseling was provided and all questions were answered regarding diagnosis and need for follow up with PMD. There is agreement to discharge plan. Return if symptoms persist or worsen. Scribe Attestation: Documented by Satish Santamaria, acting as a scribe for Keshav Yip MD. Provider Scribe Attestation: All medical record entries made by the Scribe were at my direction and personally dictated by me. I have reviewed the chart and agree that the record accurately reflects my personal performance of the history, physical exam, medical decision making, and the department course for this patient. I have also personally directed, reviewed, and agree with the discharge instructions and disposition. Disposition - Clinical Impression Clinical Impression: Asthma exacerbation - Patient ED Disposition Is Patient to be Admitted: No Counseled Patient/Family Regarding: Diagnosis, Need For Followup, Rx Given - Disposition Referrals: Vicente Tinsley MD [Primary Care Provider] - Disposition: Routine/Home Disposition Time: 09:35 Condition: IMPROVED Additional Instructions: follow up with your primary doctor in 1-2 days return to the ED with any worsening or concerning symptoms Prescriptions: Albuterol HFA [Ventolin HFA 90 mcg/actuation (8 g)] 1 - 2 puff IH Q4H PRN #1 bottle PRN Reason: Wheezing Instructions: Asthma, Adult (DC) Forms: [employer] (Bengali)
[2017-07-31 10:02] VITALS: BP 110/78; PULSE 88; TEMP 97
== END 2017-07-31 10:03 | disposition home or self-care (01) ==
LOC: H.ER 06:37
DX: J45.901 Unspecified asthma with (acute) exacerbation (principal); J44.9 Chronic obstructive pulmonary disease, unspecified

== ENCOUNTER 2017-08-17 10:34 | Observation (INO) | payer SELFPAY ==
[2017-08-17 10:34] VITALS: BMI 19.8
[2017-08-17] MEDS ORDERED: Albuterol-Ipratrop 3 mg / 0.5 (3 ml) UD INH STA ×3 (10:54→10:55)
[2017-08-17] MEDS ORDERED: Albuterol-Ipratrop 3 mg / 0.5 (3 ml) UD ONE (11:01)
--- NOTE | 2017-08-17 12:13 | RAD ---
HISTORY: cough, sOB, hx asthma COMPARISON: 05/19/2017 TECHNIQUE: Chest PA and lateral FINDINGS: LUNGS: No active pulmonary disease. PLEURA: No significant pleural effusion identified. No pneumothorax apparent. CARDIOVASCULAR: Normal. OSSEOUS STRUCTURES: No significant abnormalities. VISUALIZED UPPER ABDOMEN: Normal. OTHER FINDINGS: None. IMPRESSION: No active disease.
[2017-08-17] MEDS ORDERED: DiphenhydrAMINE 50 mg/ml Inj IVP STA (14:05)
[2017-08-17] MEDS ORDERED: Sodium Chloride 0.9% 1,000 ML IV STA (14:06)
[2017-08-17] MEDS ORDERED: DiphenhydrAMINE 50 mg/ml Inj ONE (14:34)
[2017-08-17 14:57] LABS: HEMOGLOBIN 12.4 g/dL (12.0-16.0); MEAN CELL VOLUME 92.2 fl (81.0-99.0); MEAN CORPUSCULAR HGB CONC 33.7 g/dL (33.0-37.0); RBC 3.99 Mil/uL (3.80-5.20); RED CELL DISTRIBUTION WIDTH 11.8 % (11.5-14.5); WHITE BLOOD COUNT 6.7 K/uL (4.8-10.8)
[2017-08-17 15:11] LABS: ALB/GLOB RATIO 1.4 (1.0-2.1); ALT/SGPT 32 U/L (9-52); AST/SGOT 19 U/L (14-36); BLOOD UREA NITROGEN 8 mg/dl (7-17); CALCIUM 9.5 mg/dL (8.4-10.2); GFR AFRICAN-AMERICAN > 60; GFR NON-AFRICAN AMERICAN > 60
--- NOTE | 2017-08-17 16:28 | ED PDOC ---
History of Present Illness History of Present Illness: URI symptoms for 3 days. HPI: Influenza Time Seen by Provider: 08/17/17 10:43 Chief Complaint: Cough, Cold, Congestion Chief Complaint (Provider): URI symptoms x 3 days, no fever History Per: Patient Exam Limitations: no limitations Have you had recent travel within the past 21 days to any of: No Onset/Duration Of Symptoms: Days Symptoms include: denies: fever, headache, bodyaches, sore throat, cough Sick Contacts (Context): None Hx Influenza Vaccination: No Risk factors for flu complications: Yes: chronic lung disease Additional complaint(s):: PT states that she has been feeling SOB and wheezing since last night. No improvement in inhaler and albuterol treatments at home. Past Medical History Reviewed: Historical Data, Nursing Documentation, Vital Signs Vital Signs: Last Vital Signs Temp 98 F 08/17/17 10:53 Pulse 118 H 08/17/17 15:35 Resp 19 08/17/17 15:35 BP 109/76 08/17/17 13:25 Pulse Ox 97 08/17/17 15:35 - Medical History PMH: Anemia, Asthma, Bronchitis, Pneumonia (x 3) Denies: Chronic Kidney Disease - Surgical History Surgical History: No Surg Hx - Family History Family History: States: Unknown Family Hx, Diabetes, Hypertension - Home Medications Home Medications: Ambulatory Orders Medication Instructions Recorded Albuterol HFA [Ventolin HFA 90 1 - 2 puff IH Q4H PRN #1 bottle 07/31/17 mcg/actuation (8 g)] - Allergies Allergies/Adverse Reactions: Allergies Allergy/AdvReac Type Severity Reaction Status Date / Time shellfish derived Allergy ANGIOEDEMA Verified 12/06/16 09:57 Review of Systems ROS Statement: Except As Marked, All Systems Reviewed And Found Negative Constitutional: Negative for: Fever, Chills Respiratory: Positive for: Cough, Shortness of Breath, Wheezing Physical Exam - Reviewed Nursing Documentation Reviewed: Yes Vital Signs Reviewed: Yes - Physical Exam Appears: Positive for: Well, Non-toxic, No Acute Distress Head Exam: Positive for: ATRAUMATIC, NORMAL INSPECTION, NORMOCEPHALIC Skin: Positive for: Normal Color, Warm, DRY Eye Exam: Positive for: Normal appearance ENT: Positive for: Normal ENT Inspection Neck: Positive for: Normal, Painless ROM Cardiovascular/Chest: Positive for: Regular Rate, Rhythm Respiratory: Positive for: Wheezing (Diffuse, bilateral ). Negative for: Accessory Muscle Use, Respiratory Distress Back: Positive for: Normal Inspection Extremity: Positive for: Normal ROM Neurologic/Psych: Positive for: Alert, Oriented Medical Decision Making Medical Decision Making: Pt initally did not want solumedrol do to previous rash. PT states she has had it on multiple occasions and only once had rash. After 3 treatments there is little improvement in wheezing and pt states she does not feel better. Solumedrol than ordered. 1600 - PT continues to wheeze and feel SOB. Pulse Ox highest is 93% on room air. Discussed case with Dr. Sarmiento for admission. - Laboratory Results Result Diagrams: 08/17/17 14:53 08/17/17 14:53 - ECG O2 Sat by Pulse Oximetry: 97 Disposition - Clinical Impression Clinical Impression: Asthma exacerbation - Patient ED Disposition Is Patient to be Admitted: Yes - Disposition Disposition Time: 16:32 Condition: STABLE
--- NOTE | 2017-08-17 16:57 | CP.PCM.HP ---
History of Present Illness - History of Present Illness History of Present Illness: 21 yo female with history of Asthma came in because of SOB and wheezing since last night not responding to her regular asthma medications at home. She was started on Duoneb via nebulizer x 3 and 125mg of IV SoluMedrol to no avail. Denied fever or chills. Present on Admission - Present on Admission Any Indicators Present on Admission: No History of DVT/PE: No History of Uncontrolled Diabetes: No Urinary Catheter: No Decubitus Ulcer Present: No Review of Systems - Review of Systems All systems: reviewed and no additional remarkable complaints except (aside from those mentioned above, 12 point system review were negative by me) Past Patient History - Infectious Disease Hx of Infectious Diseases: None - Tetanus Immunizations Tetanus Immunization: Unknown - Past Social History Smoking Status: Never Smoked Alcohol: None Drugs: Denies Home Situation {Lives}: With Family - CARDIAC Hx Cardiac Disorders: No - PULMONARY Hx Asthma: Yes Hx Bronchitis: Yes Hx Pneumonia: Yes (x 3) - NEUROLOGICAL Hx Neurological Disorder: No - HEENT Hx HEENT Problems: No - RENAL Hx Chronic Kidney Disease: No - ENDOCRINE/METABOLIC Hx Endocrine Disorders: No - HEMATOLOGICAL/ONCOLOGICAL Hx Anemia: Yes - INTEGUMENTARY Hx Dermatological Problems: No - MUSCULOSKELETAL/RHEUMATOLOGICAL Hx Falls: No - GASTROINTESTINAL Hx Gastrointestinal Disorders: No - GENITOURINARY/GYNECOLOGICAL Hx Genitourinary Disorders: No - PSYCHIATRIC Hx Psychophysiologic Disorder: No Hx Substance Use: No - SURGICAL HISTORY Hx Surgeries: No Other/Comment: left leg injury- cut from metal with surgical repair - ANESTHESIA Hx Anesthesia: Yes Hx Anesthesia Reactions: No Meds Allergies/Adverse Reactions: Allergies Allergy/AdvReac Type Severity Reaction Status Date / Time shellfish derived Allergy ANGIOEDEMA Verified 12/06/16 09:57 Physical Exam - Constitutional Appears: No Acute Distress - Head Exam Head Exam: ATRAUMATIC - Eye Exam Eye Exam: absent: Scleral icterus - ENT Exam ENT Exam: Mucous Membranes Moist - Neck Exam Neck exam: Negative for: Meningismus - Respiratory Exam Respiratory Exam: Prolonged Expiratory Phase, Rhonchi, Wheezes. absent: Chest Wall Tenderness - Cardiovascular Exam Cardiovascular Exam: Tachycardia - GI/Abdominal Exam GI & Abdominal Exam: Soft. absent: Tenderness - Rectal Exam Rectal Exam: Deferred - Extremities Exam Extremities exam: Negative for: calf tenderness, pedal edema - Back Exam Back exam: absent: tenderness - Neurological Exam Neurological exam: Alert, Oriented x3 - Psychiatric Exam Psychiatric exam: Normal Affect - Skin Skin Exam: Dry, Intact Results - Vital Signs Recent Vital Signs: Last Vital Signs Temp 98 F 08/17/17 10:53 Pulse 118 H 08/17/17 15:35 Resp 19 08/17/17 15:35 BP 109/76 08/17/17 13:25 Pulse Ox 97 08/17/17 16:32 - Labs Result Diagrams: 08/17/17 14:53 08/17/17 14:53 Labs: Laboratory Results - last 24 hr 08/17/17 08/17/17 14:53 14:53 WBC 6.7 RBC 3.99 Hgb 12.4 Hct 36.8 MCV 92.2 MCH 31.0 MCHC 33.7 RDW 11.8 Plt Count 179 Sodium 142 Potassium 4.0 Chloride 104 Carbon Dioxide 22 Anion Gap 20 BUN 8 Creatinine 0.6 L Est GFR ( Amer) > 60 Est GFR (Non-Af Amer) > 60 Random Glucose 84 Calcium 9.5 Total Bilirubin 2.2 H AST 19 ALT 32 Alkaline Phosphatase 43 Total Protein 6.9 Albumin 4.0 Globulin 2.9 Albumin/Globulin Ratio 1.4 Assessment & Plan - Assessment and Plan (Free Text) Assessment: 21 yo female with history of Asthma came in because of SOB and wheezing since last night not responding to her regular asthma medications at home. She was started on Duoneb via nebulizer x 3 and 125mg of IV SoluMedrol to no avail. Denied fever or chills. 1. Acute Exacerbation of Asthma Albuterol via nebulizer q 4hrs prn for SOB/wheezing Duoneb via nebulizer QID SoluMedrol 40mg IV q 8hrs Advair 250/50 1 puff q 12hrs Montelukast 10mg PO HS
[2017-08-17] MEDS ORDERED: Albuterol 0.083% Inhal Sol (2.5 mg/3 mL) UD INH PRN (17:11)
[2017-08-17] MEDS ORDERED: Albuterol 0.083% Inhal Sol (2.5 mg/3 mL) UD ONE (18:43)
[2017-08-17] MEDS: Fluticasone-Salmeterol 250-50mcg Diskus IH SCH (22:50)
[2017-08-17] MEDS: Albuterol-Ipratrop 3 mg / 0.5 (3 ml) UD INH SCH (23:40)
[2017-08-17 23:48] VITALS: RESP 18
[2017-08-18] MEDS ORDERED: methylPREDNISolone 40 MG in Sodium Chloride 0.9% 50 ML IVPB SCH (01:00)
[2017-08-18] MEDS: MethylPREDNISolone 40 mg Vial IVP SCH ×2 (01:03→09:54)
[2017-08-18 07:32] LABS: BASO % 0.3 % (0.0-2.0); HEMOGLOBIN 12.5 g/dL (12.0-16.0); LYMPH # 0.2 K/uL (1.0-4.3); LYMPH % 2.7 % (20.0-40.0); MEAN CELL VOLUME 92.4 fl (81.0-99.0); MEAN CORPUSCULAR HGB CONC 33.5 g/dL (33.0-37.0); MEAN PLATELET VOLUME 10.4 fl (7.2-11.7); MONO # 0.2 K/uL (0.0-0.8); MONO % 2.6 % (0.0-10.0); NEUT # 6.4 K/uL (1.8-7.0); NEUT % 94.4 % (50.0-75.0); NRBC % 0.1 % (0.0-0.0); PLATELET COUNT 196 K/uL (130-400); RBC 4.05 Mil/uL (3.80-5.20); RED CELL DISTRIBUTION WIDTH 12.2 % (11.5-14.5); WHITE BLOOD COUNT 6.8 K/uL (4.8-10.8)
[2017-08-18] MEDS: Albuterol-Ipratrop 3 mg / 0.5 (3 ml) UD INH SCH ×2 (07:39→11:26)
[2017-08-18 07:40] VITALS: O2SAT 94
[2017-08-18 07:57] LABS: BLOOD UREA NITROGEN 8 mg/dl (7-17); CALCIUM 9.7 mg/dL (8.4-10.2); GFR AFRICAN-AMERICAN > 60; GFR NON-AFRICAN AMERICAN > 60
[2017-08-18] MEDS ORDERED: Pantoprazole 40 mg EC Tab PO SCH (09:00)
[2017-08-18] MEDS: Fluticasone-Salmeterol 250-50mcg Diskus IH SCH (09:54)
[2017-08-18] MEDS ORDERED: Albuterol 0.083% Inhal Sol (2.5 mg/3 mL) UD INH STA (12:03)
[2017-08-18 12:07] VITALS: BP 104/68; PULSE 109; TEMP 98.2
--- NOTE | 2017-08-18 12:26 | CP.PCM.DIS ---
Provider - Provider Date of Admission: 08/17/17 16:26 Attending physician: Ritesh Austin MD Primary care physician: Dr. Tinsley Time Spent in preparation of Discharge (in minutes): 15 Hospital Course - Lab Results Lab Results: Most Recent Lab Values WBC 6.8 K/uL (4.8-10.8) 08/18/17 05:29 RBC 4.05 Mil/uL (3.80-5.20) 08/18/17 05:29 Hgb 12.5 g/dL (12.0-16.0) 08/18/17 05:29 Hct 37.4 % (34.0-47.0) 08/18/17 05:29 MCV 92.4 fl (81.0-99.0) 08/18/17 05:29 MCH 31.0 pg (27.0-31.0) 08/18/17 05:29 MCHC 33.5 g/dL (33.0-37.0) 08/18/17 05:29 RDW 12.2 % (11.5-14.5) 08/18/17 05:29 Plt Count 196 K/uL (130-400) 08/18/17 05:29 MPV 10.4 fl (7.2-11.7) 08/18/17 05:29 Neut % (Auto) 94.4 % (50.0-75.0) H 08/18/17 05:29 Lymph % (Auto) 2.7 % (20.0-40.0) L 08/18/17 05:29 [place] % (Auto) 2.6 % (0.0-10.0) 08/18/17 05:29 Eos % (Auto) 0.0 % (0.0-4.0) 08/18/17 05:29 Baso % (Auto) 0.3 % (0.0-2.0) 08/18/17 05:29 Neut # (Auto) 6.4 K/uL (1.8-7.0) 08/18/17 05:29 Lymph # (Auto) 0.2 K/uL (1.0-4.3) L 08/18/17 05:29 [place] # (Auto) 0.2 K/uL (0.0-0.8) 08/18/17 05:29 Eos # (Auto) 0.0 K/uL (0.0-0.7) 08/18/17 05:29 Baso # (Auto) 0.0 K/uL (0.0-0.2) 08/18/17 05:29 Sodium 142 mmol/l (132-148) 08/18/17 05:29 Potassium 4.3 MMOL/L (3.6-5.0) 08/18/17 05:29 Chloride 105 mmol/L (98-107) 08/18/17 05:29 Carbon Dioxide 23 mmol/L (22-30) 08/18/17 05:29 Anion Gap 18 (10-20) 08/18/17 05:29 BUN 8 mg/dl (7-17) 08/18/17 05:29 Creatinine 0.6 mg/dl (0.7-1.2) L 08/18/17 05:29 Est GFR ( Amer) > 60 08/18/17 05:29 Est GFR (Non-Af Amer) > 60 08/18/17 05:29 Random Glucose 115 mg/dL (65-105) H 08/18/17 05:29 Calcium 9.7 mg/dL (8.4-10.2) 08/18/17 05:29 Total Bilirubin 2.2 mg/dl (0.2-1.3) H 08/17/17 14:53 AST 19 U/L (14-36) 08/17/17 14:53 ALT 32 U/L (9-52) 08/17/17 14:53 Alkaline Phosphatase 43 U/L (38-126) 08/17/17 14:53 Total Protein 6.9 G/DL (6.3-8.2) 08/17/17 14:53 Albumin 4.0 g/dL (3.5-5.0) 08/17/17 14:53 Globulin 2.9 gm/dL (2.2-3.9) 08/17/17 14:53 Albumin/Globulin Ratio 1.4 (1.0-2.1) 08/17/17 14:53 - Hospital Course Hospital Course: 21 yo female with history of Asthma came in because of SOB and wheezing since last night not responding to her regular asthma medications at home(ventolin and HFA and albutererol machine ).CXR showed no infiltrate. She is afebrile, has normal WBc count. She was given Duoneb via nebulizer x 3 and 125mg of IV SoluMedrol with minimal to no improvement .She was placed under observation in telemetry , continued on Solumedrol 40 mg IV Q8, duonebs and Singylari. Art present patient si feeling better but tevin has rhonchi and coughing spells. Will d/c home on Singulair, prednisone letty starting form 20 mg po BID tappering by 5 mg daily advisedfollow up with PMND in 1 week 1. Acute Exacerbation of Asthma ( mild intermittent asthma) Given Solumedrol 125 mg Iv x 1 dose and 40 mg iV Q8 hours, Duonebs Started Singulair Will d/c on letty of Prednisone PO, albuterol HFA , Singulari at [facility] Will need to follow upw ith PMD in 1 week Discharge Exam - Head Exam Head Exam: ATRAUMATIC, NORMAL INSPECTION, NORMOCEPHALIC - Eye Exam Eye Exam: EOMI, Normal appearance, PERRL Pupil Exam: NORMAL ACCOMODATION - ENT Exam ENT Exam: Mucous Membranes Moist, Normal Exam - Neck Exam Neck exam: Full Rom, Normal Inspection - Respiratory Exam Respiratory Exam: Clear to PA & Lateral, Rhonchi, NORMAL BREATHING PATTERN. absent: Rales, Wheezes, Respiratory Distress - Cardiovascular Exam Cardiovascular Exam: REGULAR RHYTHM, RRR, +S1, +S2. absent: JVD - GI/Abdominal Exam GI & Abdominal Exam: Normal Bowel Sounds, Soft. absent: Distended, Guarding, Rebound, Tenderness - Rectal Exam Rectal Exam: Deferred - Extremities Exam Extremities exam: normal capillary refill, normal inspection, pedal pulses present - Back Exam Back exam: NORMAL INSPECTION - Neurological Exam Neurological exam: Alert, CN II-XII Intact, Oriented x3, Reflexes Normal - Psychiatric Exam Psychiatric exam: Normal Affect, Normal Mood - Skin Skin Exam: Dry, Intact, Normal Color, Warm Discharge Plan - Discharge Medications Prescriptions: Guaifenesin [Mucinex] 600 mg PO BID #14 tab.er.12h Montelukast Sodium [Singulair] 10 mg PO DAILY #30 tablet Prednisone [Deltasone] 20 mg PO BID 8 Days tablet - Follow Up Plan Condition: STABLE Disposition: HOME/ ROUTINE Patient education suggested?: Yes Instructions: Asthma, Adult (DC) Referrals: Vicente Tinsley MD [Staff Provider] -
[2017-08-18] MEDS ORDERED: MethylPREDNISolone 40 mg Vial IVP ONE (12:30)
[2017-08-18 12:47] LABS: LYMPHOCYTE 5 % (20-50); MONOCYTE 1 % (0-10); NEUTROPHIL 94 % (42-75); PLATELET ESTIMATE NORMAL (NORMAL); TOTAL CELLS COUNTED 100
[2017-08-18] MEDS ORDERED: methylPREDNISolone 40 MG in Sodium Chloride 0.9% 50 ML IV ONE (13:00)
== END 2017-08-18 14:05 | disposition home or self-care (01) ==
LOC: H.ER 10:34 → H.ERHOLD 16:26 → H.TEL 20:48
DX: J45.21 Mild intermittent asthma with (acute) exacerbation (principal); D64.9 Anemia, unspecified; Z87.01 Personal history of pneumonia (recurrent); Z91.013 Allergy to seafood
CPT/HCPCS: 36415; 71046; 80048; 80053; 81025; 85025; 85027; 94150; 94640; 96374; 99285; G0378; J1200; J2920; J2930; J7040

== ENCOUNTER 2018-01-28 09:20 | Emergency (ER) | payer SELFPAY ==
[2018-01-28 09:21] VITALS: BMI 19.8
[2018-01-28 09:31] VITALS: BP 116/72; RESP 20; TEMP 97; O2SAT 96
[2018-01-28] MEDS ORDERED: Albuterol-Ipratrop 3 mg / 0.5 (3 ml) UD IH STA (09:41)
--- NOTE | 2018-01-28 09:44 | ED PDOC ---
HPI: SOB/CHF/COPD Time Seen by Provider: 01/28/18 09:33 Chief Complaint (Nursing): Shortness Of Breath History Per: Patient Onset/Duration Of Symptoms: Days (3) Exacerbating Factor(s): Coughing Current Respiratory Medications: See Home Med List Severity: Moderate Associated Symptoms: denies: Fever, Chills, Productive Cough Additional Complaint(s): SOB assoc with nonproductive cough x 3 days. Ran out of inhaler yesterday. Denies fever or chills Past Medical History Vital Signs: Last Vital Signs Temp 97 F L 01/28/18 09:35 Pulse 119 H 01/28/18 09:35 Resp 20 01/28/18 09:35 BP 116/72 01/28/18 09:35 Pulse Ox 96 01/28/18 09:44 - Medical History PMH: Anemia, Asthma, Bronchitis, Pneumonia (x 3) Denies: Chronic Kidney Disease - Family History Family History: States: Unknown Family Hx, Diabetes, Hypertension - Immunization History Hx Influenza Vaccination: No - Home Medications Home Medications: Ambulatory Orders Medication Instructions Recorded Albuterol HFA [Ventolin HFA 90 1 - 2 puff IH Q4H PRN #1 bottle 07/31/17 mcg/actuation (8 g)] Guaifenesin [Mucinex] 600 mg PO BID #14 tab.er.12h 08/18/17 Montelukast [Singulair] 10 mg PO HS #30 tab 08/18/17 Prednisone [Deltasone] 20 mg PO BID 8 Days tablet 08/18/17 Albuterol HFA [Ventolin HFA 90 2 puff IH Q4H #1 puff 01/28/18 mcg/actuation (8 g)] Azithromycin [Zithromax] 250 mg PO DAILY #6 tab 01/28/18 Prednisone 50 mg PO DAILY #5 tab 01/28/18 - Allergies Allergies/Adverse Reactions: Allergies Allergy/AdvReac Type Severity Reaction Status Date / Time shellfish derived Allergy ANGIOEDEMA Verified 12/06/16 09:57 Review of Systems ROS Statement: Except As Marked, All Systems Reviewed And Found Negative Constitutional: Negative for: Fever Respiratory: Positive for: Cough, Shortness of Breath Physical Exam - Reviewed Nursing Documentation Reviewed: Yes Vital Signs Reviewed: Yes - Physical Exam Appears: Positive for: Non-toxic, No Acute Distress Head Exam: Positive for: ATRAUMATIC, NORMAL INSPECTION, NORMOCEPHALIC Skin: Positive for: Normal Color, Warm, DRY Neck: Positive for: Normal, Painless ROM Cardiovascular/Chest: Positive for: Regular Rate, Rhythm Respiratory: Positive for: Decreased Breath Sounds, Rhonchi. Negative for: Respiratory Distress Back: Positive for: Normal Inspection Extremity: Positive for: Normal ROM Neurologic/Psych: Positive for: Alert, Oriented - ECG O2 Sat by Pulse Oximetry: 96 Disposition - Clinical Impression Clinical Impression: Bronchitis, Asthma exacerbation - Patient ED Disposition Is Patient to be Admitted: No Counseled Patient/Family Regarding: Studies Performed, Diagnosis, Need For Followup, Rx Given - Disposition Referrals: [facility] [Outside] Disposition: Routine/Home Disposition Time: 11:21 Condition: FAIR Prescriptions: Albuterol HFA [Ventolin HFA 90 mcg/actuation (8 g)] 2 puff IH Q4H #1 puff Azithromycin [Zithromax] 250 mg PO DAILY #6 tab Prednisone 50 mg PO DAILY #5 tab Instructions: Asthma in Adults, Acute Bronchitis Forms: [employer] (U[place]ayan)
--- NOTE | 2018-01-28 10:32 | RAD ---
Date of service: 01/28/2018 HISTORY: SOB COMPARISON: Chest radiographs 08/17/2017. TECHNIQUE: PA and lateral views of been submitted for interpretation. FINDINGS: LUNGS: No active pulmonary disease. PLEURA: No significant pleural effusion identified. No pneumothorax apparent. CARDIOVASCULAR: Normal. OSSEOUS STRUCTURES: No significant abnormalities. VISUALIZED UPPER ABDOMEN: Normal. OTHER FINDINGS: None. IMPRESSION: No interval acute cardiopulmonary disease appreciated.
[2018-01-28] MEDS ORDERED: Albuterol-Ipratrop 3 mg / 0.5 (3 ml) UD ONE (10:43)
[2018-01-28 13:40] VITALS: PULSE 91
== END 2018-01-28 11:30 | disposition home or self-care (01) ==
LOC: H.ER 09:20
DX: J40 Bronchitis, not specified as acute or chronic (principal); J45.901 Unspecified asthma with (acute) exacerbation; J44.9 Chronic obstructive pulmonary disease, unspecified

== ENCOUNTER 2018-03-04 03:34 | Emergency (ER) | payer SELFPAY ==
[2018-03-04 03:34] VITALS: BMI 19.8
[2018-03-04] MEDS ORDERED: Albuterol-Ipratrop 3 mg / 0.5 (3 ml) UD INH STA (04:18)
--- NOTE | 2018-03-04 04:39 | ED PDOC ---
HPI: SOB/CHF/COPD <Marcos Toure - Last Filed: 03/04/18 05:05> History Per: Patient Additional Complaint(s): Pt. states for the past 2 days she's had wheezing and cough. Reports that symptoms initially started with a sore throat and nasal congestion. Also reports last night she developed a fever tmax of 102 for which she took Dayquil for. Denies previous intubations, recent travel, chest pain, hemoptysis, rash, abdominal pain, headache, N/V/D. Also states [employer] she took 2 albuterol neb treatments without relief and that most of her coworkers have a cough. <Heath Allen - Last Filed: 03/04/18 06:05> Time Seen by Provider: 03/04/18 03:59 Chief Complaint (Nursing): Shortness Of Breath Past Medical History Vital Signs: Last Vital Signs Temp 98.4 F 03/04/18 04:00 Pulse 100 H 03/04/18 04:54 Resp 20 03/04/18 04:31 BP 111/81 03/04/18 04:00 Pulse Ox 95 03/04/18 04:54 <Marcos Toure - Last Filed: 03/04/18 05:05> Reviewed: Historical Data, Nursing Documentation, Vital Signs Vital Signs: Last Vital Signs Temp 98.4 F 03/04/18 04:00 Pulse 100 H 03/04/18 04:00 Resp 20 03/04/18 04:31 BP 111/81 03/04/18 04:00 Pulse Ox 95 03/04/18 04:00 - Medical History PMH: Anemia, Asthma, Bronchitis, Pneumonia (x 3) Denies: Chronic Kidney Disease - Family History Family History: States: Unknown Family Hx, Diabetes, Hypertension - Immunization History Hx Influenza Vaccination: No <Heath Allen - Last Filed: 03/04/18 06:05> - Home Medications Home Medications: Ambulatory Orders Medication Instructions Recorded Albuterol HFA [Ventolin HFA 90 1 - 2 puff IH Q4H PRN #1 bottle 07/31/17 mcg/actuation (8 g)] Guaifenesin [Mucinex] 600 mg PO BID #14 tab.er.12h 08/18/17 Montelukast [Singulair] 10 mg PO HS #30 tab 08/18/17 Prednisone [Deltasone] 20 mg PO BID 8 Days tablet 08/18/17 Albuterol HFA [Ventolin HFA 90 2 puff IH Q4H #1 puff 01/28/18 mcg/actuation (8 g)] Azithromycin [Zithromax] 250 mg PO DAILY #6 tab 01/28/18 Prednisone 50 mg PO DAILY #5 tab 01/28/18 Albuterol HFA [Ventolin HFA 90 2 puff IH [id number] PRN #60 puff 03/04/18 mcg/actuation (8 g)] Oseltamivir [Tamiflu] 75 mg PO BID #10 cap 03/04/18 predniSONE [Prednisone] 40 mg PO DAILY #8 tab 03/04/18 - Allergies Allergies/Adverse Reactions: Allergies Allergy/AdvReac Type Severity Reaction Status Date / Time shellfish derived Allergy ANGIOEDEMA Verified 12/06/16 09:57 Review of Systems ROS Statement: Except As Marked, All Systems Reviewed And Found Negative Constitutional: Positive for: Fever Respiratory: Positive for: Cough, Wheezing <Heath Allen - Last Filed: 03/04/18 06:05> Physical Exam - Physical Exam Appears: Positive for: Well, Non-toxic, No Acute Distress Skin: Positive for: Normal Color, Warm. Negative for: Rash Eye Exam: Positive for: EOMI, Normal appearance, PERRL ENT: Positive for: TM Is/Are (non-erythematous, non-bulging b/l), Pharyngeal Erythema. Negative for: Tonsillar Exudate, Tonsillar Swelling Cardiovascular/Chest: Positive for: Regular Rate, Rhythm. Negative for: Tachycardia Respiratory: Positive for: Wheezing (b/l expiratory wheezing). Negative for: Respiratory Distress Neurologic/Psych: Positive for: Alert, Oriented (x3) <Heath Allen - Last Filed: 03/04/18 06:05> - ECG ECG: Positive for: Interpreted By Me ECG Rhythm: Positive for: Sinus Tachycardia. Negative for: ST/T Changes Rate: 100 O2 Sat by Pulse Oximetry: 95 <Heath Allen - Last Filed: 03/04/18 06:05> Nebulizer Treatments/Peak Flow - Duonebs Number of Bronchodilator Doses given?: 3 <Heath Allen - Last Filed: 03/04/18 06:05> Disposition <Marcos Toure - Last Filed: 03/04/18 05:05> - Patient ED Disposition Is Patient to be Admitted: No - Disposition Disposition: Routine/Home Disposition Time: 06:04 <Heath Allen - Last Filed: 03/04/18 06:05> - Clinical Impression Clinical Impression: Bronchospasm, acute, Viral syndrome - Disposition Referrals: [facility] [Outside] Condition: IMPROVED Prescriptions: Albuterol HFA [Ventolin HFA 90 mcg/actuation (8 g)] 2 puff IH [id number] PRN #60 puff PRN Reason: Cough Oseltamivir [Tamiflu] 75 mg PO BID #10 cap predniSONE [Prednisone] 40 mg PO DAILY #8 tab Instructions: Asthma, Adult (DC), Viral Syndrome (DC) Forms: [employer] (Azeri), [facility] ED School/Work Excuse - PA / [employer] / Resident Statement MD/DO has reviewed & agrees with the documentation as recorded. <Marcos Toure - Last Filed: 03/04/18 05:05>
[2018-03-04 06:37] VITALS: BP 98/64; PULSE 108; RESP 18; TEMP 98.3; O2SAT 99
== END 2018-03-04 06:36 | disposition home or self-care (01) ==
LOC: H.ER 03:34
DX: J98.01 Acute bronchospasm (principal); B34.9 Viral infection, unspecified

== ENCOUNTER 2018-03-04 20:09 | Emergency (ER) | payer SELFPAY ==
[2018-03-04 20:09] VITALS: BMI 19.8
[2018-03-04 20:20] VITALS: O2SAT 96
[2018-03-04] MEDS ORDERED: Albuterol-Ipratrop 3 mg / 0.5 (3 ml) UD IH STA ×2 (20:37→21:38)
--- NOTE | 2018-03-04 20:41 | ED PDOC ---
HPI: SOB/CHF/COPD Chief Complaint (Provider): cough, sob History Per: Patient History/Exam Limitations: no limitations Onset/Duration Of Symptoms: Days (2), Waxing/Waning Current Symptoms Are (Timing): Still Present Initiating Event: Upper Respiratory Illness Current Respiratory Medications: Albuterol, Prednisone Additional Complaint(s): 22 y/o female presents for evaluation of cough with shortness of breath x 2 days. Associated subjective fevers, nasal congestion, sore throat. Patient feels congestion in chest but nothing comes up with cough. Patient seen here early this morning for same and prescribed Albuterol inhaler, prednisone, and tamiflu with little improvement. Denies fever, chest pain, palpitations, abdominal pain, leg pain/swelling, recent travel, OCP use. <Mali Trujillo - Last Filed: 03/05/18 01:31> <Marcos Toure - Last Filed: 03/06/18 03:53> Time Seen by Provider: 03/04/18 20:23 Chief Complaint (Nursing): Shortness Of Breath Past Medical History Reviewed: Historical Data, Nursing Documentation, Vital Signs Vital Signs: Last Vital Signs Temp 98.9 F 03/04/18 20:19 Pulse 116 H 03/04/18 20:19 Resp 18 03/04/18 20:19 BP 126/76 03/04/18 20:19 Pulse Ox 96 03/04/18 20:19 - Medical History PMH: Anemia, Asthma, Bronchitis, Pneumonia (x 3) Denies: Chronic Kidney Disease - Family History Family History: States: Unknown Family Hx, Diabetes, Hypertension - Immunization History Hx Influenza Vaccination: No <Mali Trujillo - Last Filed: 03/05/18 01:31> Vital Signs: Last Vital Signs Temp 98.4 F 03/05/18 01:53 Pulse 99 H 03/05/18 01:53 Resp 16 03/05/18 01:53 BP 111/52 L 03/05/18 01:53 Pulse Ox 96 03/05/18 01:53 <Marcos Toure - Last Filed: 03/06/18 03:53> - Home Medications Home Medications: Ambulatory Orders Medication Instructions Recorded RX: Albuterol HFA [Ventolin HFA 90 1 - 2 puff IH Q4H PRN #1 bottle 07/31/17 mcg/actuation (8 g)] Guaifenesin [Mucinex] 600 mg PO BID #14 tab.er.12h 08/18/17 RX: Montelukast [Singulair] 10 mg PO HS #30 tab 08/18/17 RX: Prednisone [Deltasone] 20 mg PO BID 8 Days tablet 08/18/17 Azithromycin [Zithromax] 250 mg PO DAILY #6 tab 01/28/18 RX: Albuterol HFA [Ventolin HFA 90 2 puff IH Q4H #1 puff 01/28/18 mcg/actuation (8 g)] RX: Prednisone 50 mg PO DAILY #5 tab 01/28/18 Albuterol HFA [Ventolin HFA 90 2 puff IH [id number] PRN #60 puff 03/04/18 mcg/actuation (8 g)] Oseltamivir [Tamiflu] 75 mg PO BID #10 cap 03/04/18 predniSONE [Prednisone] 40 mg PO DAILY #8 tab 03/04/18 Fluticasone Nasal [Flonase] 1 actuation NS BID #1 bottle 03/05/18 - Allergies Allergies/Adverse Reactions: Allergies Allergy/AdvReac Type Severity Reaction Status Date / Time shellfish derived Allergy ANGIOEDEMA Verified 03/04/18 20:19 Review of Systems ROS Statement: Except As Marked, All Systems Reviewed And Found Negative Constitutional: Positive for: Fever, Chills Respiratory: Positive for: Cough, Shortness of Breath, Wheezing <Mali Trujillo C - Last Filed: 03/05/18 01:31> Physical Exam - Reviewed Nursing Documentation Reviewed: Yes Vital Signs Reviewed: Yes - Physical Exam Appears: Positive for: Well, Non-toxic, No Acute Distress Head Exam: Positive for: ATRAUMATIC, NORMAL INSPECTION, NORMOCEPHALIC Skin: Positive for: Normal Color Eye Exam: Positive for: Normal appearance ENT: Positive for: Normal ENT Inspection Cardiovascular/Chest: Positive for: Regular Rate, Rhythm Respiratory: Positive for: Wheezing (expiratory) Gastrointestinal/Abdominal: Positive for: Normal Exam Back: Positive for: Normal Inspection Extremity: Positive for: Normal ROM Neurologic/Psych: Positive for: Alert, Oriented (x3) <Mali Trujillo C - Last Filed: 03/05/18 01:31> - Laboratory Results Result Diagrams: 03/04/18 20:55 03/04/18 20:55 - ECG O2 Sat by Pulse Oximetry: 96 - Radiology X-Ray: Viewed By Me X-Ray Interpretation: No Acute Disease - Progress ED Course And Treament: labs, chest xray, IV solumedrol, duonebs On re-eval, patient reports little improvement of symptoms. Mag sulfate ordered. ABG ordered but likely venous sample obtained; reviewed with ED attending 1:30 Patient resting comfortably; states she is feeling better and is comfortable being discharged to continue with her home medications. Rx flonase added Advised follow up PMD within 2-3 days Return precautions given Patient demonstrates full understanding of discharge instructions <Mali Trujillo - Last Filed: 03/05/18 01:31> - Laboratory Results Result Diagrams: 03/04/18 20:55 03/04/18 20:55 <Marcos Toure - Last Filed: 03/06/18 03:53> Disposition - Patient ED Disposition Is Patient to be Admitted: No Counseled Patient/Family Regarding: Studies Performed, Diagnosis, Need For Followup, Rx Given - Disposition Disposition: Routine/Home Disposition Time: 01:32 <Mali Trujillo - Last Filed: 03/05/18 01:31> <Marcos Toure - Last Filed: 03/06/18 03:53> - Clinical Impression Clinical Impression: Bronchitis, Asthma exacerbation - Disposition Referrals: [facility] [Outside] Condition: IMPROVED Additional Instructions: Continue medications previously prescribed Prescriptions: Fluticasone Nasal [Flonase] 1 actuation NS BID #1 bottle Instructions: Asthma in Adults, Acute Bronchitis - PA / FLOORHAND / Resident Statement MD/DO has reviewed & agrees with the documentation as recorded. <Marcos Toure - Last Filed: 03/06/18 03:53>
[2018-03-04 21:00] LABS: VENOUS BLOOD GAS BASE EXCESS 0.6 mmol/L (0.0-2.0); VENOUS BLOOD GAS PCO2 47 mmHg (40-60); VENOUS BLOOD GAS PO2 18 mm/Hg (30-55); VENOUS BLOOD PH 7.36 (7.32-7.43)
[2018-03-04 21:00] LABS: BASO % 0.6 % (0.0-2.0); EOS # 0.1 K/uL (0.0-0.7); EOS % 0.9 % (0.0-4.0); HEMOGLOBIN 12.2 g/dL (12.0-16.0); LYMPH # 0.7 K/uL (1.0-4.3); LYMPH % 11.4 % (20.0-40.0); MEAN CELL VOLUME 90.4 fl (81.0-99.0); MEAN CORPUSCULAR HEMOGLOBIN 31.1 pg (27.0-31.0); MEAN CORPUSCULAR HGB CONC 34.4 g/dL (33.0-37.0); MEAN PLATELET VOLUME 9.7 fl (7.2-11.7); MONO # 0.6 K/uL (0.0-0.8); MONO % 9.6 % (0.0-10.0); NEUT # 4.7 K/uL (1.8-7.0); NEUT % 77.5 % (50.0-75.0); RBC 3.91 Mil/uL (3.80-5.20); RED CELL DISTRIBUTION WIDTH 12.6 % (11.5-14.5)
[2018-03-04 21:10] LABS: ALB/GLOB RATIO 1.4 (1.0-2.1); ALBUMIN 4.2 g/dL (3.5-5.0); ALT/SGPT 26 U/L (9-52); AST/SGOT 21 U/L (14-36); BLOOD UREA NITROGEN 10 mg/dl (7-17); CALCIUM 9.4 mg/dL (8.4-10.2); GFR NON-AFRICAN AMERICAN > 60
[2018-03-04] MEDS ORDERED: Albuterol-Ipratrop 3 mg / 0.5 (3 ml) UD ONE ×2 (21:22→21:35)
[2018-03-04] MEDS ORDERED: Magnesium Sulfate 2 gm/50 ml 2 GM/50 ML BAG IVPB STA (23:37)
[2018-03-05] MEDS ORDERED: Magnesium Sulfate 2 gm/50 ml 2 GM/50 ML BAG ONE (00:08)
[2018-03-05 00:09] LABS: ABG ALLEN TEST YES; ARTERIAL BLOOD GAS HCO3 22.3 mmol/L (21-28); ARTERIAL BLOOD GAS O2 SAT 74.3 % (95-98); ARTERIAL BLOOD GAS PCO2 35 mm/Hg (35-45); ARTERIAL BLOOD GAS PO2 39 mm/Hg (80-100); ARTERIAL BLOOD GAS TCO2 22.8 mmol/L (22-28)
[2018-03-05 01:53] VITALS: BP 111/52; PULSE 99; RESP 16; TEMP 98.4
--- NOTE | 2018-03-05 12:12 | RAD ---
Date of service: 03/04/2018 HISTORY: Cough, shortness of breath. COMPARISON: 01/28/2018. TECHNIQUE: Chest PA and lateral FINDINGS: LUNGS: No active pulmonary disease. PLEURA: No significant pleural effusion identified. No pneumothorax apparent. CARDIOVASCULAR: Normal. OSSEOUS STRUCTURES: No significant abnormalities. VISUALIZED UPPER ABDOMEN: Normal. OTHER FINDINGS: None. IMPRESSION: No active disease.
== END 2018-03-05 01:53 | disposition home or self-care (01) ==
LOC: H.ER 20:09
DX: J44.9 Chronic obstructive pulmonary disease, unspecified (principal); J45.901 Unspecified asthma with (acute) exacerbation
CPT/HCPCS: 71046; 80053; 81025; 82803; 85025; 96374; 99283; J2930